=== PATIENT | female | born 1990 | race Caucasian/White ===

== ENCOUNTER 2021-10-01 13:17 | Emergency (ER) | payer BC ==
[~2021-10-01] VITALS: Ht 170.2 cm; Wt 142.9 kg
[2021-10-01] MEDS ORDERED: LEVO112T5 PO (13:34)
--- NOTE | 2021-10-01 15:34 | NUR ---
Patient discharged to home in stable condition with brisk steady gait. Written and verbal after care instructions given to patient. Patient verbalized understanding and compliance of instructions. Stressed follow up with primary doctor or return to ER for worsening s/s.
[2021-10-01 15:41] VITALS: BP 151/70
== END 2021-10-01 15:41 | disposition home or self-care (01) ==
LOC: ER 13:17
DX: M79.605 Pain in left leg (principal); I83.892 Varicose veins of left lower extremity with other complications; I82.812 Embolism and thrombosis of superficial veins of left lower extremity; I82.462 Acute embolism and thrombosis of left calf muscular vein; Z87.898 Personal history of other specified conditions; Z83.2 Family history of diseases of the blood and blood-forming organs and certain disorders involving the immune mechanism
CPT/HCPCS: 73590; A4663